=== PATIENT | female | born 1955 | race Caucasian/White ===

== ENCOUNTER → 2018-05-22 | Outpatient (CLI) | payer OTHER | LOC: MC.RAD 06:59 | DX: Z12.31 Encounter for screening mammogram for malignant neoplasm of breast (principal); N63.10 Unspecified lump in the right breast, unspecified quadrant ==

== ENCOUNTER → 2018-10-04 | Outpatient (CLI) | payer OTHER | LOC: COL.RAD 08:40 | DX: R91.1 Solitary pulmonary nodule (principal); R10.11 Right upper quadrant pain; Z90.710 Acquired absence of both cervix and uterus | CPT/HCPCS: Q9967 ==

== ENCOUNTER → 2022-01-17 | Outpatient (CLI) | payer MEDICARE | LOC: MC.RAD 15:34 | DX: Z12.31 Encounter for screening mammogram for malignant neoplasm of breast (principal) ==

== ENCOUNTER 2023-12-24 22:17 | Observation (INO) | payer MEDICARE, OTHER ==
[~2023-12-24] VITALS: Ht 170.2 cm; Wt 61.1 kg
[2023-12-25] VITALS (9 sets, daily range): BP systolic 108–168; BP diastolic 64–83; PULSE 49–57; TEMP 97.6–98.3
[2023-12-25] MEDS ORDERED: Ketorolac 30 MG/ML VIAL IV ONE (01:15)
[2023-12-25] MEDS ORDERED: NS 1,000 ML IV ONE (01:15)
[2023-12-25] MEDS ORDERED: Ondansetron 4 MG/2 ML VIAL IV ONE (01:15)
[2023-12-25 01:46] LABS: BASO % 0.3 % (0.0-2.0); EOS # 0.1 K/mm3 (0.0-0.7); EOS % 0.4 % (0.0-4.0); GRAN # 10.1 K/mm3 (1.4-6.5); GRAN % 88.4 % (42.2-75.2); HEMATOCRIT 41.4 % (37.0-47.0); LYMPH # 0.8 K/mm3 (1.2-3.4); LYMPH % 6.6 % (20.0-51.0); MEAN CELL VOLUME 95 fl (80.0-100.0); MEAN CORPUSCULAR HEMOGLOBIN 32 pg (27-31); MEAN CORPUSCULAR HGB CONC 34 g/dl (33.0-37.0); MONO # 0.4 K/mm3 (0.1-0.6); MONO % 3.9 % (1.7-9.3); PLATELET COUNT 175 K/mm3 (130-400); RED BLOOD COUNT 4.34 M/mm3 (4.10-5.30); REDCELL DISTRIBUTION WIDTH-CV 11.9 % (11.5-14.5)
[2023-12-25 02:05] LABS: BILIRUBIN,TOTAL 0.3 mg/dL (0.2-1.2); C-REACTIVE PROTEIN 0.28 mg/dL (0.00-0.50); CALCIUM 10.1 mg/dL (8.4-10.2); CREATININE, serum 0.78 mg/dL (0.57-1.11); POTASSIUM 3.9 mEq/L (3.5-4.5); TOTAL PROTEIN 6.9 g/dl (6.2-8.1)
[2023-12-25 02:11] LABS: TROPONIN-I 0.011 ng/mL (0.00-0.033)
[2023-12-25] MEDS ORDERED: HYDROmorphone 0.5 MG/0.5 ML SYRINGE IV PRN (03:00)
[2023-12-25] MEDS ORDERED: Ondansetron 4 MG/2 ML VIAL IV PRN (03:00)
[2023-12-25] MEDS ORDERED: LR 1,000 ML IV SCH (03:00)
[2023-12-25] MEDS ORDERED: NS 1,000 ML IV SCH (03:15)
[2023-12-25 03:21] LABS: PH 7.5 (5.0-8.5); URINE APPEARANCE CLEAR (CLEAR/HAZY); URINE BLOOD NEGATIVE (NEGATIVE); URINE COLOR YELLOW (YELLOW); URINE GLUCOSE NEGATIVE (NEGATIVE); URINE KETONE NEGATIVE (NEGATIVE); URINE NITRATE NEGATIVE (NEGATIVE); URINE PROTEIN(semi-quant) NEGATIVE (NEGATIVE); URINE UROBILINOGEN 0.2 E.U/dL (0.2-1.0)
[2023-12-25 03:53] LABS: COLLECTION METHOD CLEAN CATCH
[2023-12-25] MEDS ORDERED: SYNTHROID0.075 MG/T PO (04:06)
[2023-12-25] MEDS ORDERED: SINGULAIR 110 MG/TAB PO (04:07)
[2023-12-25] MEDS ORDERED: PRINIVIL10 MG PO (04:08)
[2023-12-25] MEDS ORDERED: PREMARIN0.45 MG PO (04:09)
[2023-12-25] MEDS ORDERED: XELPROS2.5 ML (04:15)
--- NOTE | 2023-12-25 04:22 | NUR ---
REPORT GIVEN BY ED
--- NOTE | 2023-12-25 04:29 | NUR ---
RECIEVED PT FROM ED
[2023-12-25 05:35] LABS: BASO % 0.3 % (0.0-2.0); EOS % 0.2 % (0.0-4.0); GRAN # 8.3 K/mm3 (1.4-6.5); GRAN % 84.5 % (42.2-75.2); HEMATOCRIT 40.1 % (37.0-47.0); HEMOGLOBIN 13.3 g/dl (12.5-16.0); MEAN CELL VOLUME 94 fl (80.0-100.0); MEAN CORPUSCULAR HEMOGLOBIN 31 pg (27-31); MEAN CORPUSCULAR HGB CONC 33 g/dl (33.0-37.0); MEAN PLATELET VOLUME 11.4 fl (7.4-10.4); MONO # 0.5 K/mm3 (0.1-0.6); MONO % 4.8 % (1.7-9.3); PLATELET COUNT 193 K/mm3 (130-400); RED BLOOD COUNT 4.25 M/mm3 (4.10-5.30); REDCELL DISTRIBUTION WIDTH-CV 12.1 % (11.5-14.5)
[2023-12-25 06:00] LABS: ALBUMIN 3.6 g/dL (3.4-4.8); BILIRUBIN,TOTAL 0.4 mg/dL (0.2-1.2); CALCIUM 9.2 mg/dL (8.4-10.2); CREATININE, serum 0.75 mg/dL (0.57-1.11); POTASSIUM 4.2 mEq/L (3.5-4.5); TOTAL PROTEIN 6.2 g/dl (6.2-8.1)
[2023-12-25] MEDS ORDERED: XALATAN EYE DROPS OU (06:12)
[2023-12-25] MEDS ORDERED: PRINIVIL20 MG PO (06:12)
[2023-12-25] MEDS ORDERED: ESTRACE0.5 MG PO (06:32)
[2023-12-25] MEDS ORDERED: Lisinopril 20 MG TAB PO SCH (07:00)
--- NOTE | 2023-12-25 08:00 | NUR ---
Pt. sitting up in bed. Pt. is A&OX3, assessment complete. IV to rt. ac patent, IV fluids infusing per orders. Pt. reports pain at a 3 on pain scale at this time. Pt. denies further needs, call light within reach.
[2023-12-25] MEDS ORDERED: Pantoprazole 40 MG in NS 10 ML IV SCH (09:00)
[2023-12-25] MEDS ORDERED: Montelukast 10 MG TAB PO SCH (09:00)
--- NOTE | 2023-12-25 09:52 | NUR ---
SW met with patient to complete initial assessment for discharge planning. Patient verified that she lives in [place] with her partner/DPOA Jovanni Rodriguez ([phone]). Patient sees Dr. Ashlie Barnes as her PCP and uses [facility] pharmacy without difficulty. Patient denies any DME. Patient is covered by Medicare A/B and [employer] supplemental insurance. Patient plans to return home at discharge without difficulty. Discharge plan: Home
[2023-12-25] MEDS ORDERED: ZOVIRAX800 MG PO (09:55)
[2023-12-25] MEDS ORDERED: ZYRTEC 10MG10 MG PO (09:57)
[2023-12-25] MEDS ORDERED: MULTIPLE VITAMI1 CAP PO (09:58)
[2023-12-25] MEDS ORDERED: ASPIRIN 81M81 MG/TA2 PO (09:58)
[2023-12-25] MEDS ORDERED: PROAIR HFA0.09 MG/AC IH (09:58)
[2023-12-25] MEDS ORDERED: VITAMIN D31000 IU PO (09:59)
[2023-12-25] MEDS ORDERED: NATURE'S BLE1000 MCG PO (09:59)
[2023-12-25] MEDS ORDERED: Latanoprost 0.005% Ophth Soln 2.5 ML BOTTLE OP SCH (21:00)
--- NOTE | 2023-12-25 21:20 | NUR ---
pt is a&ox4 resting in bed. reports increased pain in her abdomen, dilaudid given for pain per emar and pt also requesting zofran for nausea. IV to right AC leaking, discontinued and new IV started to left AC. pt denies needs at this time. call light in reach.
[2023-12-26] VITALS (11 sets, daily range): BP systolic 108–170; BP diastolic 62–93; PULSE 49–60; TEMP 97.7–98.1
[2023-12-26] MEDS ORDERED: LR 1,000 ML IV SCH (06:00)
--- NOTE | 2023-12-26 06:15 | NUR ---
pt had an uneventful night, minimal pain experienced. pt NPO for surgery today. no needs at this time. call light in reach.
[2023-12-26 07:48] LABS: ALBUMIN 2.8 g/dL (3.4-4.8); BILIRUBIN,TOTAL 0.5 mg/dL (0.2-1.2); CALCIUM 8.2 mg/dL (8.4-10.2); CREATININE, serum 0.8 mg/dL (0.57-1.11); POTASSIUM 4.3 mEq/L (3.5-4.5); TOTAL PROTEIN 5.1 g/dl (6.2-8.1)
[2023-12-26 07:56] LABS: BASO % 0.8 % (0.0-2.0); EOS # 0.3 K/mm3 (0.0-0.7); EOS % 5.1 % (0.0-4.0); GRAN # 2.8 K/mm3 (1.4-6.5); GRAN % 57.5 % (42.2-75.2); LYMPH # 1.3 K/mm3 (1.2-3.4); LYMPH % 26.1 % (20.0-51.0); MEAN CELL VOLUME 97 fl (80.0-100.0); MEAN CORPUSCULAR HEMOGLOBIN 32 pg (27-31); MEAN CORPUSCULAR HGB CONC 33 g/dl (33.0-37.0); MEAN PLATELET VOLUME 12.9 fl (7.4-10.4); MONO # 0.5 K/mm3 (0.1-0.6); MONO % 10.1 % (1.7-9.3); PLATELET COUNT 105 K/mm3 (130-400); RED BLOOD COUNT 3.76 M/mm3 (4.10-5.30); REDCELL DISTRIBUTION WIDTH-CV 12.5 % (11.5-14.5)
[2023-12-26 08:32] LABS: HEMATOCRIT 36.3 % (37.0-47.0)
[2023-12-26] MEDS ORDERED: HYDROmorphone 1 MG/1 ML SYRINGE [PACU/SDC ONLY] IV PRN (08:45)
[2023-12-26] MEDS ORDERED: Ondansetron 4 MG/2 ML VIAL IV PRN ×2 (08:45→11:00)
[2023-12-26] MEDS ORDERED: fentaNYL 50 MCG/ML 1 ML SYRINGE/VIAL [PACU/SDC ONLY] IV PRN (08:45)
[2023-12-26] MEDS ORDERED: Indocyanine Green 6.25 MG in Water For Injection,Sterile 1.25 ML IV SCH (09:00)
--- NOTE | 2023-12-26 09:10 | NUR ---
Pt. sitting up in bed. Pt. is A&OX3, assessment complete. IV to lt. ac patent. Fluids infusing per orders. Sharonda RN called to inform this nurse of change in OR time. IC-green given see mar for time. IV fluids changed to preop fluids. Pt. denies pain or other needs. Misha to the floor. Pt. to PACU.
--- NOTE | 2023-12-26 10:00 | NUR ---
Pt. sitting up in chair. Pt. is A&OX3, assessment complete. INT to lt. forearm patent. Dressing to rt. hip CDI. Pt. denies pain or other needs, call light within reach.
[2023-12-26] MEDS ORDERED: Topical Skin Adhesive 1 EACH (1 ML) TOP ONE (10:30)
[2023-12-26] MEDS ORDERED: NORCO 325 MG-51 TAB PO (10:56)
[2023-12-26] MEDS ORDERED: Ibuprofen 600 MG TAB PO PRN (11:00)
[2023-12-26] MEDS ORDERED: Acetaminophen 325 MG TAB PO PRN (11:00)
--- NOTE | 2023-12-26 11:55 | NUR ---
Pt. to the floor from PACU. Bedside shift report received. Pt. has 4 abd lap sites with glue, CDI. Pt. remains A&OX3, assessment wnl. Pt. reports pain at a 3 on pain scale and denies need for pain meds. Post op vitals started, see chart. Pt. denies further needs, call light within reach.
[2023-12-26] MEDS ORDERED: Rocuronium 50 MG/5 ML Multi-Dose VIAL ONE (12:23)
[2023-12-26] MEDS ORDERED: fentaNYL 50 MCG/ML 5 ML VIAL ONE (12:24)
[2023-12-26] MEDS ORDERED: Lidocaine PF 2% (20 MG/ML) 5 ML VIAL ONE (12:24)
[2023-12-26] MEDS ORDERED: Ondansetron 4 MG/2 ML VIAL ONE (12:24)
--- NOTE | 2023-12-26 15:24 | NUR ---
Pt. is ready for discharge. INT discontinued from lt. ac. Reviewed and gave discharge paperwork to the pt. Pt. voices understanding. Pt. escorted out.
== END 2023-12-26 15:24 | disposition home or self-care (01) ==
LOC: COL.ER 22:17 → SURG 12-25 03:41
PROVIDERS: Nurse Practitioner Family; Nurse Practitioner Primary Care; ADMIT Internal Medicine
DX: K80.12 Calculus of gallbladder with acute and chronic cholecystitis without obstruction (principal); I10 Essential (primary) hypertension; E03.9 Hypothyroidism, unspecified; J45.909 Unspecified asthma, uncomplicated; H40.9 Unspecified glaucoma; L50.1 Idiopathic urticaria; Z79.899 Other long term (current) drug therapy; Z79.890 Hormone replacement therapy; Z79.82 Long term (current) use of aspirin
CPT/HCPCS: G0378; J0737; J1171; J1885; J2405; J2470; J2543; J2704; J3010; J7030; J7120